=== PATIENT | female | born 1995 | race Caucasian/White ===

== ENCOUNTER 2016-08-04 22:32 | Emergency (ER) | payer OTHER ==
[~2016-08-04] VITALS: Ht 167.6 cm; Wt 55.1 kg
[2016-08-04 22:39] VITALS: TEMP 36.5; Ht 167.6 cm; Wt 55.1 kg
[2016-08-04] MEDS ORDERED: KETOROLAC TROMETHAMINE 30 MG/ML VIAL IV STA (23:29)
[2016-08-04] MEDS ORDERED: SODIUM CHLORIDE 0.9% 500ML 500 ML IV STA (23:31)
[2016-08-04 23:42] LABS: BASO % 0.3 %; BASO ABS # 0.02 K/uL (0-0.2); COMPLETE YES; EOS % 1.2 %; HEMATOCRIT 35.8 % (37-47); IG% 0.3 %; LYMPH % 17.9 %; LYMPH ABS # 1.24 K/uL (1.2-3.4); MEAN CELL VOLUME 82.7 fL (80-100); MEAN CORPUSCULAR HEMOGLOBIN 26.1 pg (25-34); MEAN CORPUSCULAR HGB CONC 31.6 g/dl (32-36); MONO % 10.2 %; NEUT % 70.1 %; PLATELET COUNT 311 K/uL (130-400); RED BLOOD COUNT 4.33 M/uL (4.2-5.4); WHITE BLOOD COUNT 6.94 K/uL (4.8-10.8)
--- NOTE | 2016-08-04 23:48 | EMERGENCY ROOM VISIT NOTE ---
History Report prepared by Tracy: Ade Oconnor Under the Supervision of: Dr. Leni Rooney D.O. First contact with patient: 23:08 Chief Complaint: ABDOMINAL PAIN Stated Complaint: NAUSEA, DIARRHEA, ABD PAIN, UNABLE TO EAT/DRINK History of Present Illness The patient is a 20 year old female who presents to the Emergency Room with complaints of intermittent, diffuse abdominal pain that began suddenly today. She currently rates her discomfort as a 9/10 in severity. The patient states that her pain started today and she states that she vomited once. She states that she tried drinking water, but states that she could not drink it. The patient describes her discomfort as an intermittent bubbly pain, and she denies ever having any pain like this in the past. She states that this morning she had a bout of diarrhea. The patient additionally notes that she ate differently today, so she is unsure if that has something to do with her symptoms. She denies any fever, urinary symptoms, or leg cramping or swelling. The patient states that curling her legs up towards her chest alleviates her symptoms. She states that she was recently on a 14 hour flight last week and notes bilateral ear clogging, worse on her right side. The patient states that for the past four years she has had an irregular menstrual cycle, noting that she gets it every 12 days. She states that they are very heavy. The patient states that the past month her menstrual cycle has worsened with increased blood. She states that she does not follow with gynecology for this problem due to not wanting to be placed on a control pill. She denies any alcohol use today. Source of History: patient Onset: today Position: abdomen (diffuse) Symptom Intensity: 9/10 Quality: other (bubbly) Timing: intermittent Modifying Factors (Relieving): other (curling legs towards her chest) Associated Symptoms: + diarrhea, + vomiting, No fevers, No urinary symptoms Review of Systems See HPI for pertinent positives & negatives. A total of 10 systems reviewed and were otherwise negative. Past Medical & Surgical Medical Problems: (1) Anemia Family History Cancer Heart disease Seizures Social History Smoking Status: Never Smoker Alcohol Use: occasionally Drug Use: none Marital Status: single Housing Status: lives with roommate Occupation Status: [email or web address] student Current/Historical Medications Scheduled Escitalopram (Lexapro), 10 MG PO DAILY Methylphenidate (Ritalin), 20 MG PO DAILY Scheduled PRN Ibuprofen (Ibuprofen), 200-600 MG PO Q4H PRN for Pain Allergies Coded Allergies: No Known Allergies (Unverified , 08/04/16) Physical Exam Vital Signs Date Time Temp Pulse Resp B/P Pulse Ox O2 Delivery O2 Flow Rate FiO2 08/05/16 01:48 77 18 104/60 98 08/05/16 00:45 69 18 100/63 99 Room Air 08/04/16 22:39 36.5 73 18 108/68 99 Room Air Physical Exam HEENT: Head - normocephalic and atraumatic Pupils are equal, round, and reactive to light. Extraocular eye muscles are intact, and sclera are anicteric. Nose - moist nasal mucosa without discharge. Mouth - moist buccal mucosa. Oropharynx is nonerythematous and there is no tonsillar exudate or edema noted. Neck: Supple; no JVD, nuchal rigidity, cervical lymphadenopathy. Heart: Regular rate and rhythm. There is a normal S1 and S2 with no murmurs, clicks, or gallops appreciated. Lungs: Clear to auscultation bilaterally with no wheezes, rales, or rhonchi. Abdomen: Pain to palpation just above the umbilicus. Soft, nondistended, with good bowel sounds. There are no palpable pulsatile masses or hepatosplenomegaly. There is no guarding, rigidity, or rebound noted. Extremities: No evidence of cyanosis, clubbing, or edema. There are easily palpable peripheral pulses. Skin: warm and dry with good turgor and no rashes. Medical Decision & Procedures ER Provider Diagnostic Interpretation: Obstruction series x-ray: normal bowel gas pattern, mild to moderate fecal retention, no signs of obstruction. Laboratory Results 08/04/16 23:18 Red Blood Count 4.33, Mean Corpuscular Volume 82.7, Mean Corpuscular Hemoglobin 26.1, Mean Corpuscular Hemoglobin Concent 31.6, Mean Platelet Volume 11.0, Neutrophils (%) (Auto) 70.1, Lymphocytes (%) (Auto) 17.9, Monocytes (%) (Auto) 10.2, Eosinophils (%) (Auto) 1.2, Basophils (%) (Auto) 0.3, Neutrophils # (Auto ) 4.87, Lymphocytes # (Auto) 1.24, Monocytes # (Auto) 0.71, Eosinophils # (Auto ) 0.08, Basophils # (Auto) 0.02 08/04/16 23:18 Test 08/04/16 23:18 White Blood Count 6.94 K/uL (4.8-10.8) Red Blood Count 4.33 M/uL (4.2-5.4) Hemoglobin 11.3 g/dL (12.0-16.0) Hematocrit 35.8 % (37-47) Mean Corpuscular Volume 82.7 fL (80-100) Mean Corpuscular Hemoglobin 26.1 pg (25-34) Mean Corpuscular Hemoglobin Concent 31.6 g/dl (32-36) Platelet Count 311 K/uL (130-400) Mean Platelet Volume 11.0 fL (7.4-10.4) Neutrophils (%) (Auto) 70.1 % Lymphocytes (%) (Auto) 17.9 % Monocytes (%) (Auto) 10.2 % Eosinophils (%) (Auto) 1.2 % Basophils (%) (Auto) 0.3 % Neutrophils # (Auto) 4.87 K/uL (1.4-6.5) Lymphocytes # (Auto) 1.24 K/uL (1.2-3.4) Monocytes # (Auto) 0.71 K/uL (0.11-0.59) Eosinophils # (Auto) 0.08 K/uL (0-0.5) Basophils # (Auto) 0.02 K/uL (0-0.2) RDW Standard Deviation 39.2 fL (36.4-46.3) RDW Coefficient of Variation 12.9 % (11.5-14.5) Immature Granulocyte % (Auto) 0.3 % Immature Granulocyte # (Auto) 0.02 K/uL (0.00-0.02) Urine Color YELLOW Urine Appearance CLEAR (CLEAR) Urine pH 6.5 (4.5-7.5) Urine Specific [place] 1.021 (1.000-1.030) Urine Protein NEG (NEG) Urine Glucose (UA) NEG (NEG) Urine Ketones NEG (NEG) Urine Occult Blood NEG (NEG) Urine Nitrite NEG (NEG) Urine Bilirubin NEG (NEG) Urine Urobilinogen NEG (NEG) Urine Leukocyte Esterase NEG (NEG) Urine Test NEG (NEG) Anion Gap 10.0 mmol/L (3-11) Est Creatinine Clear Calc Drug Dose 99.2 ml/min Estimated GFR () 126.0 Estimated GFR (Non- 108.7 BUN/Creatinine Ratio 18.6 (10-20) Calcium Level 9.2 mg/dl (8.5-10.1) Total Bilirubin 0.3 mg/dl (0.2-1) Direct Bilirubin < 0.1 mg/dl (0-0.2) Aspartate Amino Transf (AST/SGOT) 9 U/L (15-37) Alanine Aminotransferase (ALT/SGPT) 20 U/L (12-78) Alkaline Phosphatase 67 U/L (45-117) Total Protein 7.8 gm/dl (6.4-8.2) Albumin 3.7 gm/dl (3.4-5.0) Lipase 162 U/L (73-393) Laboratory results per my review. Medications Administered Medications (Trade) Dose Ordered Sig/Onesimo Route Start Time Stop Time Status Last Admin Dose Admin Ketorolac Tromethamine 30 mg 30 mg NOW STAT IV 08/04/16 23:29 08/04/16 23:31 DC 08/04/16 23:34 30 MG Sodium Chloride (Nss 500ml) 500 ml @ 999 mls/hr Q31M STAT IV 08/04/16 23:31 08/05/16 00:01 DC 08/04/16 23:31 999 MLS/HR Procedure The patient was treated with Toradol Inj 30 mg IV, Sodium Chloride 500 ml @ 999 mls/hr IV. ED Course 2323: Past medical records reviewed. The patient was evaluated in room B3B. A complete history and physical exam was performed. An IV lock was initiated and labs are drawn as above. The patient had an obstruction series as described above. 2329: Ordered Toradol Inj 30 mg IV, Sodium Chloride 500 ml @ 999 mls/hr IV. 0046: I reevaluated the patient and she feels much better. She is going to try drinking some fluids at this time. I discussed all the exam findings with her and I discussed the treatment plan. She verbalized complete understanding and agreement. She will be ready to go home shortly. Medical Decision The patient is a 20 year old female who presents to the ED with abdominal pain. Differential diagnosis includes Constipation, ileus, gastritis, pancreatitis, GERD, ulcerative disease. Lab interpretation: no leukocytosis, anemic with hemoglobin of 11.3, normal MCV , normal lipase and LFTs, normal glucose and renal functions, urinalysis is negative, negative. This is a 20-year-old female patient who presents to the emergency department with diffuse upper abdominal pain. X-rays revealed some colonic fecal retention. After some time, the patient had relief of her symptoms. The pain cannot be localized. She had no evidence of urinary tract infection, ileus or bowel obstruction. I've asked the patient to follow-up with her PCP this week or next week. The patient was told to return to the emergency department symptoms worsened. Impression Primary Impression: Diffuse abdominal pain Scribe Attestation The scribe's documentation has been prepared under my direction and personally reviewed by me in its entirety. I confirm that the note above accurately reflects all work, treatment, procedures, and medical decision making performed by me. Departure Information Dispostion Home / Self-Care Referrals No Doctor, Assigned (PCP) Forms HOME CARE DOCUMENTATION FORM, IMPORTANT VISIT INFORMATION Patient Instructions ED Abd Pain Unkn Cause Fem, My [facility] Additional Instructions Rest. Take a bland diet. Follow up with [facility] if pain persists
[2016-08-04 23:50] LABS: ALT/SGPT 20 U/L (12-78); AST/SGOT 9 U/L (15-37); BLOOD UREA NITROGEN 15 mg/dl (7-18); BUN/CREATININE RATIO 18.6 (10-20); CALCIUM 9.2 mg/dl (8.5-10.1); CARBON DIOXIDE 28 mmol/L (21-32); CHLORIDE 107 mmol/L (98-107); CREATININE 0.78 mg/dl (0.60-1.20); GLUCOSE 98 mg/dl (70-99); POTASSIUM 4.2 mmol/L (3.5-5.1); SODIUM 145 mmol/L (136-145)
[2016-08-04 23:53] LABS: ALKALINE PHOSPHATASE 67 U/L (45-117)
[2016-08-04 23:54] LABS: URINE APPEARANCE CLEAR (CLEAR); URINE BILIRUBIN NEG (NEG); URINE COLOR YELLOW; URINE NITRITE NEG (NEG); URINE PH 6.5 (4.5-7.5); URINE SPECIFIC GRAVITY 1.021 (1.000-1.030); UROBILINOGEN NEG (NEG)
[2016-08-05 00:11] LABS: MANUAL MICROSCOPIC REQUIRED? NO; REVIEW REQ? NO
[2016-08-05 01:48] VITALS: BP 104/60; PULSE 77; O2SAT 98
--- NOTE | 2016-08-05 09:03 | DIAGNOSTIC IMAGING REPORT ---
PA CHEST WITH ABDOMINAL SERIES CLINICAL HISTORY: Constipation. FINDINGS: A PA chest radiograph is compared to study dated 10/26/2013. The cardiomediastinal silhouette is unremarkable. The lungs and pleural spaces are clear. No pneumothorax is seen. The bony thorax is grossly intact. Supine and erect abdominal radiographs are correlated with abdominal CT dated . There is a nonobstructed abdominal bowel gas pattern. Moderate fecal retention is observed. No evidence of intraperitoneal free air is seen. A naval piercing is observed. Calcified phleboliths in the pelvis are unchanged. The lumbosacral spine and bony pelvis appear intact. IMPRESSION: 1. No active disease in the chest. 2. Nonobstructed abdominal bowel gas pattern noting moderate colonic fecal retention. Electronically signed by: Felipe Martin M.D. 08/05/2016 9:01 AM Dictated Date/Time: 08/05/2016 8:59 AM
[2016-08-09] MEDS ORDERED: IBUP-1105 PO (16:56)
[2016-10-31] MEDS ORDERED: ESCI10TA17 PO (02:06)
[2016-10-31] MEDS ORDERED: RTL20 PO (02:06)
== END 2016-08-05 01:49 | disposition home or self-care (01) ==
LOC: C.EDB 22:34
DX: R10.9 Unspecified abdominal pain (principal)

== ENCOUNTER 2016-08-09 19:33 | Emergency (ER) | payer OTHER ==
[~2016-08-09] VITALS: Ht 160 cm; Wt 54.9 kg
[~2016-08-09 19:33] MED LIST: IBUP-1105 PO
[2016-08-09 19:44] VITALS: BP 112/80; TEMP 36.9; Ht 160 cm; Wt 54.9 kg
[2016-08-09] MEDS ORDERED: AMOXICIL/CLAVU 875MG HOME PACK PO ONE (20:15)
[2016-08-09] MEDS ORDERED: NORCO 5/325MG HOME PACK PO ONE (20:15)
[2016-08-09] MEDS ORDERED: AMOXICILLIN/CLAVULANATE TAB 875 MG TAB PO ONE (20:15)
[2016-08-09] MEDS ORDERED: AMOX875T PO (20:17)
[2016-08-09] MEDS ORDERED: ACET-1256 PO (20:22)
[2016-08-09 20:47] VITALS: PULSE 78; O2SAT 98
--- NOTE | 2016-08-10 00:11 | EMERGENCY ROOM VISIT NOTE ---
ED Visit Note First contact with patient: 19:47 CHIEF COMPLAINT: Toothache HISTORY OF PRESENT ILLNESS: This 20-year-old female patient presented to the emergency department with a progressive toothache for past 2-3 days. The patient believes it is coming from a left lower molar. The pain is now steady and severe and radiates to the face. The patient had a dentist appointment earlier today, and was told that she had an infection of the left lower molar. She states the dentist sent prescriptions for both pain medicine and antibiotics to her pharmacy, however when she arrives at the pharmacy no prescriptions were their. She attempted to contact her dentist again, however this was late in the day and the office was closed. She does have an upcoming appointment on Saturday for a recheck, 4 days from now. They rate their pain a 8/ 10 and the ibuprofen and Tylenol they have been taking has not relieved the pain. Denies facial swelling or fever. The patient denies any discharge from the mouth. REVIEW OF SYSTEMS: A 6 system review of systems was completed with positives and pertinent negatives listed in the HPI. ALLERGIES: No known allergies MEDICATIONS: No chronic medications PMH: Otherwise healthy SOCIAL HISTORY: Lives locally PHYSICAL EXAM: Vitals are noted on the nurse's note and reviewed by myself. Vital signs stable. GENERAL: Female, in no acute distress, nondiaphoretic, well-developed well- nourished. Mouth: The left lower posterior molar tooth is very carious and the gum is swollen and tender around it, without any discharge or signs of an abscess. The remainder of the pharynx and tonsils are without erythema, edema, or exudate. The airway is patent. There is no facial swelling, cervical or submandibular lymphadenopathy. The patient appears uncomfortable and in pain. The patient has overall good dental hygiene. EARS: External auditory canals clear, tympanic membranes pearly ramirez without erythema or effusion bilaterally. HEART: Regular rate and rhythm without murmur gallop or rub LUNG: Clear to auscultation bilateral ED COURSE: Physical exam and history were performed. Nursing notes and EMR were reviewed. The patient appears to have dental pain for the past few days. She was recently seen in the ER, and her complaint today appears distinct a different from that complaint. She no longer has abdominal pain that brought her in previously. On exam she does not have obvious abscess. Because of the time of day I am not able to confirm her dental appointment, however her story appears plausible. The patient does not have warning signs on the [place] drug monitoring website. I will provide her Augmentin with her first doses provided here via home pack. I will also give her a home pack of Vicodin for pain control. She needs to keep her appointment in the next few days with her dentist for definitive care. She was otherwise invited back to the ER with any new, worsening, or concerning symptoms. Problem List Medical Problems: (1) Anemia Status: Resolved Current/Historical Medications Scheduled Amoxicillin & Pot Clavulanate (Augmentin 875-125 mg), 1 TAB PO BID Escitalopram (Lexapro), 10 MG PO DAILY Scheduled PRN Acetaminophen (Tylenol), 500 MG PO UD PRN for Pain or Fever Ibuprofen (Ibuprofen), 200-600 MG PO Q4H PRN for Pain Methylphenidate (Ritalin), 20 MG PO DAILY PRN for Focus Allergies Coded Allergies: No Known Allergies (Unverified , 08/04/16) Vital Signs Date Time Temp Pulse Resp B/P Pulse Ox O2 Delivery O2 Flow Rate FiO2 08/09/16 20:47 78 16 98 08/09/16 19:44 36.9 73 16 112/80 98 Room Air Medications Administered Medications (Trade) Dose Ordered Sig/Onesimo Route Start Time Stop Time Status Last Admin Dose Admin Amoxicillin/ Clavulanate Potassium (Augmentin 875MG Home Pack) 1 homepack UD ONCE PO 08/09/16 20:15 08/09/16 20:17 DC 08/09/16 20:15 1 HOMEPACK Amoxicillin/ Clavulanate Potassium (Augmentin Tab) 875 mg NOW ONCE PO 08/09/16 20:15 08/09/16 20:17 DC 08/09/16 20:15 875 MG Acetaminophen/ Hydrocodone Bitart ([place] 5/325mg Home Pack) 1 homepack UD ONCE PO 08/09/16 20:15 08/09/16 20:17 DC 08/09/16 20:15 1 HOMEPACK Departure Information Impression Primary Impression: Pain, dental Dispostion Home / Self-Care Condition FAIR Prescriptions Amoxicillin & Pot Clavulanate (Augmentin 875-125 mg) 1 Tab Tab 1 TAB PO BID for 7 Days, #14 TAB Prov: Donta Cabral PA-C 08/09/16 Forms HOME CARE DOCUMENTATION FORM, IMPORTANT VISIT INFORMATION Patient Instructions My [facility] Additional Instructions You were seen and evaluated today on an emergency basis only. This is not a substitute for, or an effort to provide, complete comprehensive medical care. It is not possible to recognize and treat all injuries or illnesses in a single emergency department visit. For this reason it is recommended that you followup with your dentist as scheduled on Saturday for ongoing care. For baseline pain relief you may alternate ibuprofen and acetaminophen every 4 hours for pain control. Take 600 mg ibuprofen (Advil) and then 4 hours later take 1000 mg acetaminophen (Tylenol). Do not take more than 3000 mg acetaminophen in a single day. [place] (hydrocodone/acetaminophen) 5/325 mg every 6 hours as needed for worsening breakthrough pain. Do not drink or drive on [place]. This medication will likely make you tired. Do not take [place] and Tylenol at the same time as both contain acetaminophen. [place] may cause constipation. You may wish to take an [id number] stool softener like Colace if this occurs. Amoxicillin Clavulanate (Augmentin) 875mg: Take one pill twice daily for 7 days for your infection. All antibiotics can cause diarrhea. If this occurs and you feel worse or it does not resolve in 1-2 days follow up with your doctor or return to the Emergency Department as this could be signs of serious underlying problems. Any medication can cause an allergic reaction, stop the pills immediately and return to the ER for rash, hives, breathing difficulties, or swelling. You are welcome to return to the emergency department anytime with new, worsening, or concerning symptoms.
[2016-10-31] MEDS ORDERED: RTL20 PO (02:06)
[2016-10-31] MEDS ORDERED: ESCI10TA17 PO (02:06)
== END 2016-08-09 20:48 | disposition home or self-care (01) ==
LOC: C.EDB 19:34 → C.EDD 20:48
DX: K08.89 Other specified disorders of teeth and supporting structures (principal)

== ENCOUNTER 2016-10-02 14:44 | Emergency (ER) | payer OTHER ==
[~2016-10-02] VITALS: Ht 160 cm; Wt 55.2 kg
[~2016-10-02 14:44] MED LIST changes: +ACET-1256 PO
[2016-10-02 14:51] VITALS: TEMP 36.8; Ht 160 cm; Wt 55.2 kg
[2016-10-02 15:44] LABS: HEMATOCRIT 37.2 % (37-47); MEAN CELL VOLUME 81.4 fL (80-100); MEAN CORPUSCULAR HEMOGLOBIN 25.4 pg (25-34); MEAN CORPUSCULAR HGB CONC 31.2 g/dl (32-36); MEAN PLATELET VOLUME 10.8 fL (7.4-10.4); PLATELET COUNT 290 K/uL (130-400); RED BLOOD COUNT 4.57 M/uL (4.2-5.4); WHITE BLOOD COUNT 5.38 K/uL (4.8-10.8)
[2016-10-02 16:03] LABS: BUN/CREATININE RATIO 14.7 (10-20); CALCIUM 8.7 mg/dl (8.5-10.1); CREATININE 0.75 mg/dl (0.60-1.20); POTASSIUM 3.8 mmol/L (3.5-5.1)
[2016-10-02 16:04] LABS: ACETAMINOPHEN < 2 ug/ml (10-30)
[2016-10-02 16:14] LABS: THYROID STIMULATING HORMONE 0.794 uIu/ml (0.300-4.500)
[2016-10-02 18:02] LABS: BENZODIAZEPINE, URINE NEG (NEG); COCAINE,URINE NEG (NEG); PHENCYCLIDINE, URINE NEG (NEG)
[2016-10-02 18:03] LABS: URINE APPEARANCE CLOUDY (CLEAR); URINE BILIRUBIN NEG (NEG); URINE COLOR YELLOW; URINE EPITHELIAL CELL AUTO >30 /lpf (0-5); URINE NITRITE NEG (NEG); URINE SPECIFIC GRAVITY 1.023 (1.000-1.030); UROBILINOGEN NEG (NEG)
[2016-10-02 18:08] LABS: MANUAL MICROSCOPIC REQUIRED? NO; REVIEW REQ? YES
[2016-10-02 19:55] VITALS: BP 106/66; PULSE 77; O2SAT 97
--- NOTE | 2016-10-02 23:20 | EMERGENCY ROOM VISIT NOTE ---
History Report prepared by Tracy: Wilma Jacques Under the Supervision of: Dr. Leni Rooney D.O. First contact with patient: 15:00 Chief Complaint: ANXIETY Stated Complaint: ANXIETY ATTACKS, INSOMNIA,SUICIDAL THOUGHTS History of Present Illness The patient is a 20 year old female who presents to the Emergency Room with complaints of persistent anxiety starting yesterday. She presented to the ED last year for similar reasons. Recently, she found out that the person closest to her had been keeping secrets from her and felt betrayed. She has not been able to face that person since. Yesterday, she reports that she felt very useless and today, she had thoughts of overdosing on her medications. She says she has never hurt herself before, but had never felt so close to hurting herself as she did today. She states that she would like inpatient care. She denies any changes in bowel movements or urinary symptoms. She has a history of anxiety, depression, and ADD and is on Lexapro and methylphenidate. She has a family history of anxiety, but not depression. Her LNMP was 2 weeks ago. She does drink alcohol and states that the last time she drank was 6 days ago. She is a student and was in [place] for spring last week. Source of History: patient Onset: yesterday Position: other (global) Quality: other (anxiety) Timing: other (persistent) Associated Symptoms: No urinary symptoms Note: Pt denies changes in bowel movements. Review of Systems See HPI for pertinent positives & negatives. A total of 10 systems reviewed and were otherwise negative. Past Medical & Surgical Medical Problems: (1) Anemia Family History Cancer Heart disease Seizures Social History Smoking Status: Never Smoker Alcohol Use: occasionally Drug Use: none Marital Status: single Housing Status: lives with roommate Occupation Status: [employer] student Current/Historical Medications Scheduled Escitalopram (Lexapro), 10 MG PO DAILY Scheduled PRN Ibuprofen (Ibuprofen), 200-600 MG PO Q4H PRN for Pain Methylphenidate (Ritalin), 10-20 MG PO DAILY PRN for Focus Allergies Coded Allergies: No Known Allergies (Unverified , 08/04/16) Physical Exam Vital Signs Date Time Temp Pulse Resp B/P Pulse Ox O2 Delivery O2 Flow Rate FiO2 10/02/16 19:55 77 18 106/66 97 10/02/16 16:57 76 16 104/63 97 Room Air 10/02/16 14:51 36.8 84 16 126/82 99 Room Air Physical Exam General: Crying, appears depressed. HEENT: Head - normocephalic and atraumatic Pupils are equal, round, and reactive to light. Extraocular eye muscles are intact, and sclera are anicteric. Nose - moist nasal mucosa without discharge. Mouth - moist buccal mucosa. Oropharynx is nonerythematous and there is no tonsillar exudate or edema noted. Neck: Supple; no JVD, nuchal rigidity, cervical lymphadenopathy. Heart: Tachycardic rate and rhythm. There is a normal S1 and S2 with no murmurs , clicks, or gallops appreciated. Lungs: Clear to auscultation bilaterally with no wheezes, rales, or rhonchi. Abdomen: Soft, completely nontender, nondistended, with good bowel sounds. There are no palpable pulsatile masses or hepatosplenomegaly. There is no guarding, rigidity, or rebound noted. Extremities: No evidence of cyanosis, clubbing, or edema. There are easily palpable peripheral pulses. Skin: warm and dry with good turgor and no rashes. Psych: depressed, admits to thoughts of suicide by overdose. Medical Decision & Procedures Laboratory Results 10/02/16 15:34 10/02/16 15:34 Test 10/02/16 15:05 10/02/16 15:34 Urine Color YELLOW Urine Appearance CLOUDY (CLEAR) Urine pH 6.0 (4.5-7.5) Urine Specific [place] 1.023 (1.000-1.030) Urine Protein NEG (NEG) Urine Glucose (UA) NEG (NEG) Urine Ketones TRACE (NEG) Urine Occult Blood NEG (NEG) Urine Nitrite NEG (NEG) Urine Bilirubin NEG (NEG) Urine Urobilinogen NEG (NEG) Urine Leukocyte Esterase NEG (NEG) Urine WBC (Auto) 1-5 /hpf (0-5) Urine RBC (Auto) 0-4 /hpf (0-4) Urine Hyaline Casts (Auto) 1-5 /lpf (0-5) Urine Epithelial Cells (Auto) >30 /lpf (0-5) Urine Bacteria (Auto) 2+ (NEG) Urine Pathogenic Casts /lpf (0) Urine Opiates Screen NEG (NEG) Urine Methadone, Qualitative NEG (NEG) Urine Barbiturates NEG (NEG) Urine Phencyclidine (PCP) Level NEG (NEG) Ur Amphetamine/Methamphetamine NEG (NEG) MDMA (Ecstasy) Screen NEG (NEG) Urine Benzodiazepines Screen NEG (NEG) Urine Cocaine Metabolite NEG (NEG) Urine Marijuana (THC) NEG (NEG) Red Blood Count 4.57 M/uL (4.2-5.4) Mean Corpuscular Volume 81.4 fL (80-100) Mean Corpuscular Hemoglobin 25.4 pg (25-34) Mean Corpuscular Hemoglobin Concent 31.2 g/dl (32-36) RDW Standard Deviation 41.4 fL (36.4-46.3) RDW Coefficient of Variation 13.9 % (11.5-14.5) Mean Platelet Volume 10.8 fL (7.4-10.4) Anion Gap 7.0 mmol/L (3-11) Est Creatinine Clear Calc Drug Dose 98.1 ml/min Estimated GFR () 132.1 Estimated GFR (Non- 113.9 BUN/Creatinine Ratio 14.7 (10-20) Calcium Level 8.7 mg/dl (8.5-10.1) Total Bilirubin 0.7 mg/dl (0.2-1) Direct Bilirubin 0.2 mg/dl (0-0.2) Aspartate Amino Transf (AST/SGOT) 11 U/L (15-37) Alanine Aminotransferase (ALT/SGPT) 14 U/L (12-78) Alkaline Phosphatase 55 U/L (45-117) Total Protein 7.8 gm/dl (6.4-8.2) Albumin 3.6 gm/dl (3.4-5.0) Thyroid Stimulating Hormone (TSH) 0.794 uIu/ml (0.300-4.500) Salicylates Level < 1.7 mg/dl (2.8-20) Acetaminophen Level < 2 ug/ml (10-30) Ethyl Alcohol mg/dL < 3.0 mg/dl (0-3) Laboratory results per my review. ED Course 1513: The patient was evaluated in room A5. A complete history and physical examination were performed. Nursing notes and previous electronic medical records were reviewed. Labs were drawn as above. 1655: I reevaluated the patient. The nurse case manager was evaluating the patient. : [facility] has been contacted about the patient. 183: The patient will be evaluated for further management by the [facility]. 191: I reevaluated the patient. She is doing fine. I updated her on the treatment plan. She expressed understanding and agreement. She will be evaluated by the Bart. Medical Decision The patient is a 20 year old female who presents to the ED with anxiety. Differential diagnosis includes depression, anxiety, mood disorder, suicidal ideation, thought disorder. Labs: No leukocytosis, stable H & H. Normal TSH and glucose. Normal renal function and LFTs. Alcohol, Tylenol, aspirin negative. This is a 20-year-old female patient who presents to emergency department with suicidal ideation. The patient describes having some difficulty with her friends and feeling very disappointed and one of them. She states that she had some thoughts of suicide by overdose. She is willing to admit herself voluntarily for inpatient psychiatric care. Impression Primary Impression: Suicidal ideation Scribe Attestation The scribe's documentation has been prepared under my direction and personally reviewed by me in its entirety. I confirm that the note above accurately reflects all work, treatment, procedures, and medical decision making performed by me. Departure Information Dispostion Mental Health Acute Care Referrals [facility] (PCP) Patient Instructions My [facility]
[2016-10-31] MEDS ORDERED: RTL20 PO (02:06)
[2016-10-31] MEDS ORDERED: ESCI10TA17 PO (02:06)
== END 2016-10-02 20:05 ==
LOC: C.EDB 14:46 → C.EDA 20:05
DX: F32.9 Major depressive disorder, single episode, unspecified (principal); R45.851 Suicidal ideations; F90.9 Attention-deficit hyperactivity disorder, unspecified type; Z79.899 Other long term (current) drug therapy; D64.9 Anemia, unspecified; Z82.0 Family history of epilepsy and other diseases of the nervous system

== ENCOUNTER 2016-10-31 19:07 | Emergency (ER) | payer OTHER ==
[~2016-10-31] VITALS: Ht 160 cm; Wt 54.4 kg
[~2016-10-31 19:07] MED LIST changes: -ACET-1256 PO; +ESCI10TA17 PO; +RTL20 PO
[2016-10-31 19:10] VITALS: BP 114/75; PULSE 100; TEMP 36.7; O2SAT 95; Ht 160 cm; Wt 54.4 kg
[2016-10-31] MEDS ORDERED: KETOROLAC TROMETHAMINE 60 MG/2 ML VIAL IM STA (19:23)
[2016-10-31] MEDS ORDERED: ONDANSETRON HOME PACK 4MG OD TAB PO ONE (19:30)
--- NOTE | 2016-10-31 19:40 | EMERGENCY ROOM VISIT NOTE ---
History First contact with patient: 19:13 Chief Complaint: ABDOMINAL PAIN Stated Complaint: PERIOD CRAMPS,NAUSEA Nursing Triage Summary: "I'm having really bad period cramps". usually has bad cramping during period, has been seen here in the past. Pt states she was told that she should go on control pills. History of Present Illness The patient is a 21 year old female who presents to the Emergency Room with complaints of painful period cramps. The patient states that her menstrual period started this morning. She states that she frequently has very painful periods. She states that her periods are irregular. She has been seen here before and has had ultrasounds in the past which have not showed any findings. The patient reports that she has been told that she should go on control pills for her pain, but she previously did not want to. She does report that at this time, she is planning to follow-up with [facility] to be placed on control. She rates her discomfort a 7/10 and states that it is crampy and very similar to previous episodes. She states that previously, she has been given a shot of an anti-inflammatory and a home pack of nausea medication and does very well with this. She denies any fevers, abnormal discharge, vomiting, or urinary symptoms. She denies any chance of and states that she is not sexually active. Review of Systems A complete 10-point Review of Systems was discussed with the patient, with pertinent positives and negatives listed in the History of Present Illness. All remaining Review of Systems questions can be considered negative unless otherwise specified. Past Medical/Surgical History Medical Problems: (1) Anemia Family History Cancer Heart disease Seizures Social History Smoking Status: Never Smoker Alcohol Use: occasionally Drug Use: none Marital Status: single Housing Status: lives with roommate Occupation Status: [employer] student Current/Historical Medications Scheduled Escitalopram (Lexapro), 10 MG PO DAILY Scheduled PRN Ibuprofen (Ibuprofen), 200-600 MG PO Q4H PRN for Pain Methylphenidate (Ritalin), 10-20 MG PO DAILY PRN for Focus Allergies Coded Allergies: No Known Allergies (Unverified , 08/04/16) Physical Exam Vital Signs Date Time Temp Pulse Resp B/P Pulse Ox O2 Delivery O2 Flow Rate FiO2 10/31/16 19:10 36.7 100 16 114/75 95 Room Air Physical Exam VITALS: Vitals are noted on the nurse's note and reviewed by myself. Vital signs stable. GENERAL: This is a 21-year-old female, in no acute distress, nondiaphoretic, well-developed well-nourished. SKIN: Capillary reflex less than 2 seconds. HEENT: Normocephalic. PERRLA. EOMI. Nares patent. Mucous membranes moist. Neck is supple without nuchal rigidity. HEART: Regular rate and rhythm without murmurs gallops or rubs. LUNGS: Clear to auscultation bilaterally without wheezes, rales or rhonchi. ABDOMEN: Positive bowel sounds x 4. Soft, nontender to palpation. NEURO: Patient was alert and oriented to person place and time. Medical Decision & Procedures Medications Administered Medications (Trade) Dose Ordered Sig/Onesimo Route Start Time Stop Time Status Last Admin Dose Admin Ketorolac Tromethamine (Toradol Inj) 60 mg NOW STAT IM 10/31/16 19:23 10/31/16 19:25 DC 10/31/16 19:31 60 MG Ondansetron HCl (ZOFRAN ODT 4MG Home Pack) 1 homepack UD ONCE PO 10/31/16 19:30 10/31/16 19:31 DC 10/31/16 19:45 1 HOMEPACK ED Course The patient was evaluated as above. Labs were drawn and IV access was obtained. Patient was medicated with 60 mg Toradol IM. She was given a home pack of Zofran Discharge instructions were reviewed with the patient. The patient verbalized understanding of my assessment and treatment plan and was discharged home in good condition. Medical Decision Differential diagnosis includes dysmenorrhea, , ovarian cyst, ovarian torsion, among others. The patient is a 21-year-old female who presents today complaining of dysmenorrhea. She has been here multiple times for the same complaint. She has previously received an injection of Toradol and a home pack of Zofran and states she does very well with this. She reports that her symptoms today are identical to previous episodes. She declined any laboratory testing or ultrasound. I did give her the information for [facility] for follow-up. She will return for any worsening pain. Discharge instructions were reviewed with the patient and she was discharged home in good condition. Impression Primary Impression: Dysmenorrhea Departure Information Dispostion Home / Self-Care Condition GOOD Referrals [facility] (PCP) Ric Smith M.D. Patient Instructions My [facility] Additional Instructions For pain control, you can use the following [id number] medicines (if >12 yo): - Regular strength (325mg/tab) Tylenol (acetaminophen) 2 tabs every 4-6 hours as needed. Do not exceed 12 tablets in a 24 hour period. Avoid taking more than 4 grams (4000 mg) of Tylenol per day. This includes any other sources of acetaminophen you may take on a regular basis. - Regular strength (200 mg/tab) Advil (ibuprofen) 1-2 tabs every 4-6 hours as needed. Do not exceed a dose of 3200 mg per day. Follow-up with [facility] or [facility] services for further evaluation and treatment. Return to the emergency department with any worsening abdominal pain or new/ concerning symptoms.
== END 2016-10-31 19:40 | disposition home or self-care (01) ==
LOC: C.EDB 19:08 → C.EDA 19:40
DX: N94.6 Dysmenorrhea, unspecified (principal); D64.9 Anemia, unspecified; Z82.0 Family history of epilepsy and other diseases of the nervous system; Z82.49 Family history of ischemic heart disease and other diseases of the circulatory system

== ENCOUNTER 2016-11-29 11:24 | Emergency (ER) | payer OTHER ==
[~2016-11-29] VITALS: Ht 160 cm; Wt 49.3 kg
[2016-11-29 11:35] VITALS: TEMP 36.7; Ht 160 cm; Wt 49.3 kg
[2016-11-29] MEDS ORDERED: IBUPROFEN 200 MG TAB PO STA (11:46)
[2016-11-29] MEDS ORDERED: BCPILLS PO (11:54)
--- NOTE | 2016-11-29 12:14 | DIAGNOSTIC IMAGING REPORT ---
LEFT RIBS UNILATERAL WITH PA CHEST CLINICAL HISTORY: left lower rib pain/fall COMPARISON STUDY: No previous studies for comparison. FINDINGS: The erect chest reveals no pneumothorax. There is no focal pulmonary consolidation. There are no pleural effusions. There is a thoracolumbar scoliosis. No left-sided rib fractures are visualized. IMPRESSION: No evidence of pneumothorax. No left-sided rib fractures are visualized. Electronically signed by: Jhony Griffiths M.D. 11/29/2016 12:12 PM Dictated Date/Time: 11/29/2016 12:11 PM
--- NOTE | 2016-11-29 12:19 | EMERGENCY ROOM VISIT NOTE ---
ED Visit Note First contact with patient: 11:38 CHIEF COMPLAINT: Left Rib injury HISTORY OF PRESENT ILLNESS: This 21-year-old female presents the ER with chief complain of left lateral lower rib pain. The patient states she fell off a chair 2 days ago. She is unsure what she hit with her left ribs. Since that time she has had increasing pain in the left lateral ribs. She tried some topical cream and pain patches without any relief. The patient has not taken anything orally. The patient states that it hurts when she even talks. She denies any shortness of breath. She denies any prior rib injury. REVIEW OF SYSTEMS: 6 system review was performed and was negative unless stated otherwise in history of present illness. PMH: The patient is healthy; there is no significant medical or surgical history. SOCIAL HISTORY: She lives with roommates. The patient denies any tobacco use but admits to occasional alcohol use. PHYSICAL EXAM: Vital Signs: Were reviewed Reviewed Nurse's notes. GEN.: 21-year -old female appears in no acute distress. MENTAL Status: Alert and oriented 3. LUNGS: Clear to auscultation and breath sounds equal, no wheezes, rales, or rhonchi. HEART: Heart sounds are regular without murmurs, ectopy, gallop, or rub. CHEST WALL: No gross bony deformity noted. No erythema, edema or ecchymosis noted. The patient is tender to palpation over the left lower lateral chest wall otherwise chest wall is nontender. EMERGENCY DEPARTMENT COURSE: The patient was evaluated. The patient was given Motrin 400 mg by mouth for pain. X-ray of the left ribs to include chest was ordered and interpreted by the radiologist and myself. DIAGNOSTICS:LEFT RIBS UNILATERAL WITH PA CHEST CLINICAL HISTORY: left lower rib pain/fall COMPARISON STUDY: No previous studies for comparison. FINDINGS: The erect chest reveals no pneumothorax. There is no focal pulmonary consolidation. There are no pleural effusions. There is a thoracolumbar scoliosis. No left-sided rib fractures are visualized. IMPRESSION: No evidence of pneumothorax. No left-sided rib fractures are visualized. Electronically signed by: Jhony Griffiths M.D. 11/29/2016 12:12 PM The patient was informed of the findings. The patient was discharged home in stable condition. DIAGNOSIS: Left rib contusion TREATMENT and DISCHARGE INSTRUCTIONS: Recommend ibuprofen 400 mg every 6 hours with food for pain. Avoid any strenuous activity with her upper body until pain resolves. This may take several weeks. If your symptoms should worsen or he feels short of breath, follow-up with your family physician. Problem List Medical Problems: (1) Anemia Status: Resolved Current/Historical Medications Scheduled Control Pills ( Control Pills), 1 TAB PO DAILY Escitalopram (Lexapro), 10 MG PO DAILY Scheduled PRN Methylphenidate (Ritalin), 10-20 MG PO DAILY PRN for Focus Allergies Coded Allergies: No Known Allergies (Unverified , 11/29/16) Vital Signs Date Time Temp Pulse Resp B/P Pulse Ox O2 Delivery O2 Flow Rate FiO2 11/29/16 11:35 36.7 96 18 100/66 94 Room Air Medications Administered Medications (Trade) Dose Ordered Sig/Onesimo Route Start Time Stop Time Status Last Admin Dose Admin Ibuprofen (Advil Tab) 400 mg NOW STAT PO 11/29/16 11:46 11/29/16 11:48 DC 11/29/16 11:52 400 MG Departure Information Referrals No Doctor, Assigned (PCP) [email or web address]
[2016-11-29 12:26] VITALS: BP 95/60; PULSE 75; O2SAT 98
== END 2016-11-29 12:27 | disposition home or self-care (01) ==
LOC: C.EDB 11:26 → C.EDD 12:27
DX: S20.212A Contusion of left front wall of thorax, initial encounter (principal); W07.XXXA Fall from chair, initial encounter; Z79.3 Long term (current) use of hormonal contraceptives

== ENCOUNTER 2017-03-08 11:16 | Emergency (ER) | payer OTHER ==
[~2017-03-08] VITALS: Ht 160 cm; Wt 51.3 kg
[~2017-03-08 11:16] MED LIST changes: +BCPILLS PO; -IBUP-1105 PO
[2017-03-08 11:17] VITALS: TEMP 36.8; Ht 160 cm; Wt 51.3 kg
[2017-03-08] MEDS ORDERED: ONDANSETRON INJ 2 MG/ML 2 ML VIAL IV STA (11:33)
[2017-03-08] MEDS ORDERED: SODIUM CHLORIDE 0.9% 1000ML 1,000 ML IV STA ×2 (11:33→12:25)
--- NOTE | 2017-03-08 11:41 | EMERGENCY ROOM VISIT NOTE ---
History First contact with patient: 11:22 Chief Complaint: HEADACHE Stated Complaint: N,V, HEADACHE History of Present Illness The patient is a 21 year old female who presents to the Emergency Room with complaints of headache. The patient states that she has pain in the posterior aspect of her head. She rates her discomfort a 9/10. She states that she has had persistent nausea and vomiting. The patient takes control pills. She arrived to the area yesterday after a long flight from [facility]. The patient states that she did drink alcohol last night but not as much as she usually drinks. She states that she was concerned because she has a headache and vomiting today. She believes it could be because she didn't eat much yesterday. She denies any history of headaches. She denies any earache, sore throat, cough or fever. She denies any pain in her chest or trouble breathing. She denies any abdominal pain, nausea or vomiting. She denies any extremity numbness, tingling, weakness. Review of Systems A 10 system review of systems was completed with positives and pertinent negatives listed in the HPI. Past Medical/Surgical History Medical Problems: (1) Anemia Family History Cancer Heart disease Seizures Social History Smoking Status: Never Smoker Alcohol Use: occasionally Drug Use: none Marital Status: single Housing Status: lives with roommate Occupation Status: [employer] student Current/Historical Medications Scheduled Control Pills ( Control Pills), 1 TAB PO DAILY Physical Exam Vital Signs Date Time Temp Pulse Resp B/P (MAP) Pulse Ox O2 Delivery O2 Flow Rate FiO2 03/08/17 14:31 75 18 104/68 99 03/08/17 14:31 75 18 104/68 99 Room Air 03/08/17 13:28 77 20 110/60 99 Room Air 03/08/17 11:17 36.8 86 20 114/76 97 Room Air Physical Exam VITALS: Vitals are noted on the nurse's note and reviewed by myself. Vital signs stable. The patient is afebrile. GENERAL: This is a 21-year-old female, in no acute distress, nondiaphoretic, well-developed well-nourished. SKIN: The skin was without rashes, erythema, edema, or bruising. There is no tenting of the skin. Capillary reflex less than 2 seconds. HEAD: Normocephalic atraumatic. EARS: External auditory canals clear, tympanic membranes pearly ramirez without erythema or effusion bilaterally. EYES: Pupils equal round and reactive to light and accommodation. Conjunctivae without injection, sclerae without icterus. Extraocular movements intact. NOSE: Patent, turbinates without inflammation or discharge. MOUTH: Mucous membranes moist. Tonsils are not enlarged. Pharynx without erythema or exudate. Uvula midline. Airway patent. Tongue does not deviate. NECK: Supple without nuchal rigidity. No lymphadenopathy. No thyromegaly. Cervical spine is nontender. No JVD. HEART: Regular rate and rhythm without murmurs gallops or rubs. LUNGS: Clear to auscultation bilaterally without wheezes, rales or rhonchi. No retractions or accessory muscle use. ABDOMEN: Positive bowel sounds x 4. Soft, nontender, without masses or organomegaly. MUSCULOSKELETAL: No muscle atrophy, erythema, or edema noted. Full range of motion without joint tenderness in all extremities. No tenderness to palpation. Normal gait. Strength 5/5 throughout. NEURO: Patient was alert and oriented to person place and time. Cranial nerves II through XII grossly intact. No focal neurological deficits. Medical Decision & Procedures ER Provider Diagnostic Interpretation: Brain MRI WITH AND WITHOUT CONTRAST HISTORY: Headaches. TECHNIQUE: Multiplanar multisequence MRI of the brain was performed both before and after the intravenous administration of contrast. COMPARISON STUDY: None. FINDINGS: There are no areas of restricted diffusion to suggest acute infarction. The midline structures are intact. A 1.7 cm retention cyst within the right maxillary sinus. No fluid levels within the paranasal sinuses. A 1.4 cm T1 and T2 hyperintense lesion within the right parietal bone. This is consistent with a hemangioma. There are 2 small foci of T2 hyperintensity seen within the subcortical white matter of the frontal lobes. The dominant lesion within the right frontal lobe on coronal image 8 measures 5 mm. Linear focus of enhancement within the right frontoparietal junction is consistent with a small developmental venous anomaly. This is considered to be a normal variant. Mastoid air cells are clear. The ventricles and sulci are within normal limits for age. There is no mass, hematoma, midline shift. The major vascular flow-voids at the skull base are well maintained. Postcontrast sequences show no areas of abnormal enhancement. IMPRESSION: No acute intracranial abnormality. There are 2 small foci of T2 hyperintensity seen within the subcortical white matter of the frontal lobes. This is nonspecific but can be seen in the setting of migraines. A demyelinating disease, vasculitis, or Lyme's disease is considered less likely. Laboratory Results 03/08/17 11:40 Red Blood Count 4.30, Mean Corpuscular Volume 81.2, Mean Corpuscular Hemoglobin 26.0, Mean Corpuscular Hemoglobin Concent 32.1, Mean Platelet Volume 10.2, Neutrophils (%) (Auto) 76.7, Lymphocytes (%) (Auto) 16.2, Monocytes (%) (Auto) 5.8, Eosinophils (%) (Auto) 0.3, Basophils (%) (Auto) 0.3, Neutrophils # (Auto) 4.64, Lymphocytes # (Auto) 0.98, Monocytes # (Auto) 0.35, Eosinophils # (Auto) 0.02, Basophils # (Auto) 0.02 03/08/17 11:40 Test 03/08/17 11:40 White Blood Count 6.05 K/uL (4.8-10.8) Red Blood Count 4.30 M/uL (4.2-5.4) Hemoglobin 11.2 g/dL (12.0-16.0) Hematocrit 34.9 % (37-47) Mean Corpuscular Volume 81.2 fL (80-100) Mean Corpuscular Hemoglobin 26.0 pg (25-34) Mean Corpuscular Hemoglobin Concent 32.1 g/dl (32-36) Platelet Count 289 K/uL (130-400) Mean Platelet Volume 10.2 fL (7.4-10.4) Neutrophils (%) (Auto) 76.7 % Lymphocytes (%) (Auto) 16.2 % Monocytes (%) (Auto) 5.8 % Eosinophils (%) (Auto) 0.3 % Basophils (%) (Auto) 0.3 % Neutrophils # (Auto) 4.64 K/uL (1.4-6.5) Lymphocytes # (Auto) 0.98 K/uL (1.2-3.4) Monocytes # (Auto) 0.35 K/uL (0.11-0.59) Eosinophils # (Auto) 0.02 K/uL (0-0.5) Basophils # (Auto) 0.02 K/uL (0-0.2) RDW Standard Deviation 42.6 fL (36.4-46.3) RDW Coefficient of Variation 14.4 % (11.5-14.5) Immature Granulocyte % (Auto) 0.7 % Immature Granulocyte # (Auto) 0.04 K/uL (0.00-0.02) Prothrombin Time 10.7 SECONDS (9.0-12.0) Prothromb Time International Ratio 1.0 (0.9-1.1) Activated Partial Thromboplast Time 24.5 SECONDS (21.0-31.0) Partial Thromboplastin Ratio 0.9 Urine Color YELLOW Urine Appearance CLOUDY (CLEAR) Urine pH >= 9.0 (4.5-7.5) Urine Specific [place] 1.021 (1.000-1.030) Urine Protein NEG (NEG) Urine Glucose (UA) NEG (NEG) Urine Ketones NEG (NEG) Urine Occult Blood NEG (NEG) Urine Nitrite NEG (NEG) Urine Bilirubin NEG (NEG) Urine Urobilinogen NEG (NEG) Urine Leukocyte Esterase TRACE (NEG) Urine WBC (Auto) 1-5 /hpf (0-5) Urine RBC (Auto) 0-4 /hpf (0-4) Urine Hyaline Casts (Auto) 1-5 /lpf (0-5) Urine Epithelial Cells (Auto) >30 /lpf (0-5) Urine Bacteria (Auto) 1+ (NEG) Urine Renal Epithelial Cells 0-5 /lpf (0-5) Urine Test NEG (NEG) Anion Gap 5.0 mmol/L (3-11) Est Creatinine Clear Calc Drug Dose 108.3 ml/min Estimated GFR () 145.3 Estimated GFR (Non- 125.4 BUN/Creatinine Ratio 19.5 (10-20) Calcium Level 8.6 mg/dl (8.5-10.1) Total Bilirubin 0.5 mg/dl (0.2-1) Aspartate Amino Transf (AST/SGOT) 18 U/L (15-37) Alanine Aminotransferase (ALT/SGPT) 16 U/L (12-78) Alkaline Phosphatase 45 U/L (45-117) Total Protein 7.7 gm/dl (6.4-8.2) Albumin 3.6 gm/dl (3.4-5.0) Globulin 4.1 gm/dl (2.5-4.0) Albumin/Globulin Ratio 0.9 (0.9-2) Medications Administered Medications (Trade) Dose Ordered Sig/Onesimo Route Start Time Stop Time Status Last Admin Dose Admin Sodium Chloride 1,000 ml @ 999 mls/hr Q1H1M STAT IV 03/08/17 11:33 03/08/17 12:33 DC 03/08/17 11:33 999 MLS/HR Ondansetron HCl (Zofran Inj) 4 mg NOW STAT IV 03/08/17 11:33 03/08/17 11:37 DC 03/08/17 11:51 4 MG Sodium Chloride 1,000 ml @ 999 mls/hr Q1H1M STAT IV 03/08/17 12:25 03/08/17 13:25 DC 03/08/17 13:30 999 MLS/HR Prochlorperazine Edisylate (Compazine Inj) 10 mg NOW STAT IV 03/08/17 13:04 03/08/17 13:05 DC 03/08/17 13:33 10 MG Diphenhydramine HCl (Benadryl Inj) 25 mg NOW STAT IV 03/08/17 13:04 03/08/17 13:05 DC 03/08/17 13:32 25 MG Ketorolac Tromethamine (Toradol Inj) 30 mg NOW STAT IV 03/08/17 13:04 03/08/17 13:05 DC 03/08/17 13:33 30 MG ED Course The patient was seen previous visits were reviewed. The patient does not have a fever or leukocytosis. She does not have any significant electrolyte abnormality. INR is 1.0. Urinalysis is negative. Urine test is negative. The patient was hydrated with normal saline solution, 2 L IV She was given 4 mg IV Zofran She was given 10 mg IV Compazine, 25 mg IV Benadryl and 30 mg IV Toradol The patient had marked improvement in her symptoms The patient presents to the emergency department with nausea, vomiting, headache. The patient was drinking alcohol last night and thought she could be hung over. She states she did not think she drank enough alcohol to feel this bad. The patient also just traveled from [facility] by airplane yesterday. She also takes control pills. Given the control pills, recent travel, posterior headache, vomiting and no significant history of headaches, I was concern for venous sinus thrombosis. An MRI was obtained as above. The MRI reveals nonspecific white matter changes. The patient states that she does get headaches when I asked her in more detail. She states that her mother gets migraines but her headaches never seem that bad so she didn't think they were migraines. The patient's symptoms were resolved with the above treatment. She should follow up with neurology for further evaluation and management. She should return with worsening symptoms. The case was discussed with Dr. Lemons who agrees with the assessment and treatment plan. Medical Decision The differential diagnosis includes: head or neck trauma, cerebrovascular disorders, intracranial lesions, infection,transient ischemic attack (TIA), CVA , seizure, syncope, intracranial mass, intracranial bleeding and vestibular disorders, among others Medication Reconcilliation Current Medication List: was personally reviewed by me Blood Pressure Screening Patient's blood pressure: Normal blood pressure Blood pressure disposition: Did not require urgent referral Impression Primary Impression: Migraine Departure Information Dispostion Home / Self-Care Condition GOOD Referrals No Doctor, Assigned (PCP) Yolis Juarez M.D. Patient Instructions ED Headache Migraine, My [facility] Additional Instructions Contact neurology on Saturday for a follow up appointment Return with worsening symptoms, fevers, neck pain, generalized worsening symptoms
[2017-03-08 11:55] LABS: URINE APPEARANCE CLOUDY (CLEAR); URINE BILIRUBIN NEG (NEG); URINE COLOR YELLOW; URINE EPITHELIAL CELL AUTO >30 /lpf (0-5); URINE NITRITE NEG (NEG); URINE PH >= 9.0 (4.5-7.5); URINE SPECIFIC GRAVITY 1.021 (1.000-1.030); UROBILINOGEN NEG (NEG); ZZUR CULT IF INDIC CLEAN CATCH YES
[2017-03-08 11:57] LABS: BASO % 0.3 %; BASO ABS # 0.02 K/uL (0-0.2); COMPLETE YES; EOS % 0.3 %; HEMATOCRIT 34.9 % (37-47); IG% 0.7 %; LYMPH % 16.2 %; LYMPH ABS # 0.98 K/uL (1.2-3.4); MEAN CELL VOLUME 81.2 fL (80-100); MEAN CORPUSCULAR HGB CONC 32.1 g/dl (32-36); MEAN PLATELET VOLUME 10.2 fL (7.4-10.4); MONO % 5.8 %; NEUT % 76.7 %; PLATELET COUNT 289 K/uL (130-400); WHITE BLOOD COUNT 6.05 K/uL (4.8-10.8)
[2017-03-08 12:06] LABS: PARTIAL THROMBOPLASTIN RATIO 0.9; PROTHROMBIN TIME (PATIENT) 10.7 SECONDS (9.0-12.0)
[2017-03-08 12:12] LABS: BUN/CREATININE RATIO 19.5 (10-20); CALCIUM 8.6 mg/dl (8.5-10.1); CREATININE 0.66 mg/dl (0.60-1.20)
[2017-03-08 12:13] LABS: MANUAL MICROSCOPIC REQUIRED? NO; REVIEW REQ? YES; SULFASALICYLIC ACID NEG (NEG)
[2017-03-08 12:15] LABS: ALB/GLOB RATIO 0.9 (0.9-2)
--- NOTE | 2017-03-08 12:46 | DIAGNOSTIC IMAGING REPORT ---
Brain MRI WITH AND WITHOUT CONTRAST HISTORY: Headaches. TECHNIQUE: Multiplanar multisequence MRI of the brain was performed both before and after the intravenous administration of contrast. COMPARISON STUDY: None. FINDINGS: There are no areas of restricted diffusion to suggest acute infarction. The midline structures are intact. A 1.7 cm retention cyst within the right maxillary sinus. No fluid levels within the paranasal sinuses. A 1.4 cm T1 and T2 hyperintense lesion within the right parietal bone. This is consistent with a hemangioma. There are 2 small foci of T2 hyperintensity seen within the subcortical white matter of the frontal lobes. The dominant lesion within the right frontal lobe on coronal image 8 measures 5 mm. Linear focus of enhancement within the right frontoparietal junction is consistent with a small developmental venous anomaly. This is considered to be a normal variant. Mastoid air cells are clear. The ventricles and sulci are within normal limits for age. There is no mass, hematoma, midline shift. The major vascular flow-voids at the skull base are well maintained. Postcontrast sequences show no areas of abnormal enhancement. IMPRESSION: No acute intracranial abnormality. There are 2 small foci of T2 hyperintensity seen within the subcortical white matter of the frontal lobes. This is nonspecific but can be seen in the setting of migraines. A demyelinating disease, vasculitis, or Lyme's disease is considered less likely. Electronically signed by: Rome Waterman M.D. 03/08/2017 12:45 PM Dictated Date/Time: 03/08/2017 12:35 PM
[2017-03-08] MEDS ORDERED: DiphenhydrAMINE HCL 50 MG/ML VIAL IV STA (13:04)
[2017-03-08] MEDS ORDERED: KETOROLAC TROMETHAMINE 30 MG/ML VIAL IV STA (13:04)
[2017-03-08] MEDS ORDERED: PROCHLORPERAZINE 5 MG/ML 2 ML VIAL IV STA (13:04)
[2017-03-08 14:31] VITALS: BP 104/68; PULSE 75; O2SAT 99
== END 2017-03-08 14:31 | disposition home or self-care (01) ==
LOC: C.EDB 11:17 → C.EDC 14:31
DX: G43.909 Migraine, unspecified, not intractable, without status migrainosus (principal); Z79.3 Long term (current) use of hormonal contraceptives; Z82.0 Family history of epilepsy and other diseases of the nervous system; Z82.49 Family history of ischemic heart disease and other diseases of the circulatory system